=== PATIENT | male | born 1965 | race Caucasian/White ===

== ENCOUNTER 2020-04-12 14:39 | Outpatient (CLI) | payer MEDICARE, OTHER, SELFPAY ==
--- NOTE | 2020-04-12 14:45 | USCV_ITS ---
Anatoliy Adams Age: 54 Gender: M : 1965 Exam Date: 04/12/2020 14:52 Ordering Phys: Tri Harvey AIR CONDITIONING SPECIALIST Technologist: Luis M Nguyen Exam Location: [facility] [place] Indication: RT LEG PAIN AND AND SWELLING HISTORY: Lower extremity edema. PROCEDURES: Venous duplex imaging was performed in only the right lower extremity. The following venous structures were evaluated: common femoral vein, profunda vein, proximal portion of the greater saphenous vein, superficial femoral vein, and the popliteal vein. In addition, the posterior tibial and peroneal trunk were evaluated. On the left side, the common femoral, superficial femoral, profunda femoral, popliteal, posterior tibial, greater saphenous veins, and the peroneal trunk were identified and interrogated in the standard fashion. FINDINGS: Normal 2-D Doppler and augmentation and compressibility throughout the lower extremity venous structures. Additional imaging through the proximal calf veins also reveals no thrombus. Limited evaluation of the greater saphenous vein is patent with no thrombus. CONCLUSIONS No DVT right lower extremity. Dr. Gladys Ponce DO (Electronically Signed) Final Date: 12 April 2020 16:23 S
== END 2020-04-12 14:40 | disposition home or self-care (01) ==
LOC: RAD 14:44
PROVIDERS: PCP Family Medicine; Visit Provider Nurse Practitioner Family
DX: M79.661 Pain in right lower leg (principal); M79.89 Other specified soft tissue disorders
CPT/HCPCS: 93971

== ENCOUNTER 2021-03-17 06:07 | Emergency (ER) | payer MEDICARE, OTHER, SELFPAY ==
[2021-03-17 06:16] VITALS: BP 124/75; PULSE 67; RESP 20; TEMP 37; O2SAT 97; BMI 45.1
[2021-03-17 06:33] VITALS: PULSE 66; TEMP 36.9; O2SAT 96
--- NOTE | 2021-03-17 06:40 | ED_ITS ---
HPI - Male Genitourinary General: Chief complaint: Urogenital-Male Stated complaint: POSS UTI WITH BLOOD IN URINE Time Seen by Provider: 03/17/21 06:22 History of Present Illness: HPI Narrative: 55-year-old male presents emergency room with complaint of hematuria. Patient is on spironolactone. He states he has dysuria and urgency. He has noticed some dark in color to his urine. He has had some low back pain but no flank pain. MD Complaint: dysuria Onset (ago): day(s) Duration: intermittent Severity: mild Quality: aching Relieving factors: none Exacerbating factors: none Associated symptoms: Reports hematuria; Deny discharge, dysuria, fevers/chills, nausea, rash, swelling, urinary incontinence, urinary retention, mass or vomiting Review of Systems Const: Denies: fever(s), chills, body aches, change in appetite, fatigue or malaise ENMT: Denies: throat pain, ear or mastoid pain, nasal discharge or nasal congestion Card: Denies: chest pain, edema, dyspnea on exertion or orthopnea Resp: Denies: dyspnea, productive cough or non-productive cough GI: Denies: nausea or vomiting : Reports: hematuria; Denies: dysuria or urinary incontinence Skin/Breast: Denies: rash or pruritus Physical Exam Const: COMMON NORMALS: no acute distress GENERAL APPEARANCE: cooperative and comfortable ORIENTATION/CONSCIOUSNESS: Yes awake, Yes oriented to person, Yes oriented to place and Yes oriented to time HENMT: COMMON NORMALS: normocephalic, atraumatic and hearing grossly normal bilaterally HEAD & SCALP: normocephalic and atraumatic Neck/C-Spine: COMMON NORMALS: no JVD Resp: COMMON NORMALS: normal respiratory effort, No retractions, No use of accessory muscles and clear to auscultation bilaterally AUSCULTATION: clear to auscultation bilaterally Cardio: COMMON NORMALS: no JVD, regular rate, regular rhythm and No murmurs present (Cardio) RATE: regular rate RHYTHM: regular rhythm GI: COMMON NORMALS: Soft to palpation and No hepatosplenomegaly present AUSCULTATION: Yes normoactive bowel sounds PALPATION: Yes Soft to palpation, No Tenderness to palpation present (GI), No Guarding due to palpation present (GI) and Yes No hepatosplenomegaly present : COMMON NORMALS: Yes no CVA tenderness BLADDER/KIDNEY EXAM: Yes no CVA tenderness Back/Pelvis: COMMON NORMALS: no CVA tenderness Extremity: COMMON NORMALS: normal to inspection, capillary refill normal, no clubbing, cyanosis or edema, no calf tenderness and no pedal edema Neuro: SENSORIUM/ORIENTATION: Yes oriented to person, Yes oriented to place and Yes oriented to time Skin: COMMON NORMALS: no rashes or lesions noted GENERAL SKIN EXAM: no rashes or lesions noted Course Vital Signs: Vital signs: Vital Signs Temperature 98.5 F 03/17/21 06:33 Pulse Rate 62 03/17/21 08:45 Respiratory Rate 16 03/17/21 08:45 Blood Pressure 123/79 03/17/21 08:45 Pulse Oximetry 97 03/17/21 08:45 MDM - Male MDM Narrative: Medical decision making narrative: Labs and imaging reviewed. Start on Bactrim p.o. twice daily for 5 days while culture is pending. Follow- up with his primary care doctor if symptoms worsen or change return. Lab Data: Labs: Lab Results 03/17/21 03/17/21 03/17/21 06:45 07:12 07:12 WBC 3.7 10^3/uL L 10^ 3/uL (4.0-10.0) RBC 3.41 10^6/uL L 10 ^6/uL (4.1-5.3) Hgb 12.1 g/dL g/dL (11.7-16.6) Hct 34.8 % L % (42.0-52.0) MCV 102.1 fl H fl (80-94) MCH 35.5 pg H pg (28.0-34.0) MCHC 34.8 g/dL g/dL (30.0-36.0) RDW 14.8 % % (12.1-15.1) Plt Count 44 10^3/cmm L 10^ 3/cmm (130-400) MPV 10.8 fL H fL (7.4-10.4) Neut % (Auto) 52.3 % % Lymph % (Auto) 33.8 % % [place] % (Auto) 10.4 % % Eos % (Auto) 2.7 % % Baso % (Auto) 0.5 % % Neut # (Auto) 1.92 10^3/uL 10^3 /uL (1.8-7.7) Lymph # (Auto) 1.2 10^3/uL 10^3/ uL (0.8-4.8) [place] # (Auto) 0.4 10^3/uL 10^3/ uL (0.2-0.9) Eos # (Auto) 0.1 10^3/uL 10^3/ uL (0.0-0.8) Baso # (Auto) 0.0 10^3/uL 10^3/ uL (0.0-0.1) Nucleated RBC % (a uto) 0 % % Nucleated RBCs # 0.0 /100WBC /100W BC Sodium 133 mmol/L L mmol /L (136-145) Potassium 4.1 mmol/L mmol/L (3.5-5.1) Chloride 100 mmol/L mmol/L (98-107) Carbon Dioxide 25 mmol/L mmol/L (22-29) Anion Gap 12.1 (5-19) BUN 8 mg/dL mg/dL (6-20) Creatinine 0.9 mg/dL mg/dL (0.7-1.2) GFR Calculation 87.0 mL/min L mL/ min (90-130) Glucose 161 mg/dL H mg/dL (65-115) Calculated Osmolal ity 278 mOsm/kg L mOs m/kg (285-295) Calcium 8.1 mg/dL L mg/dL (8.5-10.5) Urine Color [place] (Yellow) Urine Appearance Clear (CLEAR) Urine pH 7 (5-7) Ur Specific Gravit y 1.010 (1.005-1.030) Urine Protein Neg (Negative) Urine Glucose (UA) Norm (Normal) Urine Ketones 1+ H (Negative) Urine Blood Neg (Negative) Urine Nitrate Negative (Negative) Urine Bilirubin 2+ H (Negative) Urine Urobilinogen 4+ mg/dL H mg/dL (Negative) Ur Leukocyte [place] Trace H (Negative) Urine RBC None /hpf /hpf (0-2) Urine WBC 5-10 /hpf H /hpf (0-5) Ur Squamous Epith Cells 5-10 /hpf H /hpf (0-5) Amorphous Sediment Not Reportable Urine Bacteria 1+ /hpf H /hpf (NONE) Urine Mucus Trace /hpf /hpf Discharge Plan Discharge Patient Disposition: Home Clinical Impression: Urinary tract infection Condition: Stable Prescriptions: New Bactrim DS 800-160 mg tablet 1 tab PO BID 5 Days Qty: 10 RF: 0 No Action spironolactone 25 mg tablet 25 mg PO DAILY Qty: 30 RF: 3 potassium chloride 20 mEq tablet extended release 20 meq PO DAILY Qty: 30 RF: 1 Discharge Orders: Discharge ED (Routine); Ordered 03/17/21 Ordered By: Rome Bermudez Referrals: Pedrito Aaron MD [Primary Care Provider] - Discharge Diet: Usual diet Discharge Activity: Increase activity as tolerated Patient Instructions: Opioid Safety Coding Level of Care Code ED Import/Export Freight Forwarder for Aayush Lemus
[2021-03-17 07:22] VITALS: BP 98/68; PULSE 66; RESP 16; O2SAT 97
--- NOTE | 2021-03-17 07:24 | PC.NURSE ---
Report received from Nina Regalado RN. Pt currently denies N/V/D and abdominal pain. abdomen soft and non-tender.
[2021-03-17 07:30] LABS: Basophils % 0.5 %; Eosinophils # 0.1 10^3/uL (0.0-0.8); Eosinophils % 2.7 %; Hematocrit 34.8 % (42.0-52.0); Hemoglobin 12.1 g/dL (11.7-16.6); Lymphocytes # 1.2 10^3/uL (0.8-4.8); Lymphocytes % 33.8 %; Mean Corpuscular HGB Conc 34.8 g/dL (30.0-36.0); Mean Corpuscular Hemoglobin 35.5 pg (28.0-34.0); Mean Corpuscular Volume 102.1 fl (80-94); Mean Platelet Volume 10.8 fL (7.4-10.4); Monocytes # 0.4 10^3/uL (0.2-0.9); Monocytes % 10.4 %; Neutrophils # 1.92 10^3/uL (1.8-7.7); Neutrophils % 52.3 %; Nucleated Red Blood Cells % 0 %; Platelet Count 44 10^3/cmm (130-400); Red Blood Count 3.41 10^6/uL (4.1-5.3); Red Cell Distribution Width 14.8 % (12.1-15.1); White Blood Count 3.7 10^3/uL (4.0-10.0)
[2021-03-17 07:47] LABS: Slide Review Slide Review Perform
[2021-03-17 07:49] LABS: Glucose Urine UA Norm (Normal); Ketones Urine 1+ (Negative); Protein Urine Neg (Negative); Urine Appearance Clear (CLEAR); Urine Color Orange (Yellow); pH Urine 7 (5-7)
[2021-03-17 07:49] LABS: Anion Gap 12.1 (5-19); Blood Urea Nitrogen 8 mg/dL (6-20); Calcium 8.1 mg/dL (8.5-10.5); Carbon Dioxide 25 mmol/L (22-29); Chloride 100 mmol/L (98-107); Glucose 161 mg/dL (65-115); Osmolality Calculated 278 mOsm/kg (285-295); Potassium 4.1 mmol/L (3.5-5.1); Sodium 133 mmol/L (136-145)
[2021-03-17 07:50] LABS: Add Urine Microscopic? YES; Bilirubin Urine 2+ (Negative); Blood Urine Neg (Negative); Leukocyte Esterase Urine Trace (Negative); Nitrate Urine Negative (Negative); Urobilinogen Urine 4+ mg/dL (Negative)
[2021-03-17 07:52] LABS: Add Urine Culture? No; Bacteria Urine 1+ /hpf; Mucus Urine TRACE /hpf
[2021-03-17 08:45] VITALS: BP 123/79; PULSE 62; RESP 16; O2SAT 97
== END 2021-03-17 08:47 | disposition home or self-care (01) ==
PROVIDERS: Emergency Provider Family Medicine; PCP Family Medicine
DX: N39.0 Urinary tract infection, site not specified (principal)
CPT/HCPCS: 80048; 81001; 85025; 99283

== ENCOUNTER 2021-09-10 13:42 | Emergency (ER) | payer MEDICARE, OTHER, SELFPAY ==
[2021-09-10] VITALS (11 sets, daily range): BP systolic 76–123; BP diastolic 40–74; PULSE 96–119; RESP 29–37; TEMP 36.6; O2SAT 88–99; BMI 41.3
--- NOTE | 2021-09-10 14:06 | ECG_ITS ---
[facility] Test Date: 2021-09-10 Pat Name: Anatoliy Adams Department: Room: Gender: Male Barkeeper: : 1965 Requested By: Qeuntin Barragan Order Number: [id number] Daylin MD: Marly Painter M.D. Measurements Intervals [place] Rate: 123 P: 3 MI: 102 QRS: -42 QRSD: 75 T: -7 QT: 338 QTc: 485 Interpretive Statements SINUS TACHYCARDIA WITH SHORT MI INTERVAL LOW QRS VOLTAGE IN PRECORDIAL LEADS [QRS DEFLECTION < 1.0 mV IN CHEST LEADS] INFERIOR MYOCARDIAL INFARCTION , OF INDETERMINATE AGE [40+ ms Q WAVE AND/OR ST/T ABNORMALITY IN II/aVF] ANTEROLATERAL MYOCARDIAL INFARCTION , PROBABLY RECENT Compared to ECG 06/29/2017 22:00:10 Short MI interval now present Low QRS voltage now present Myocardial infarct finding still present Electronically Signed On 09-11-2021 7:56:07 CDT by Marly Painter M.D. [id number]
--- NOTE | 2021-09-10 14:12 | ED_ITS ---
HPI - Abdominal Pain General: Chief Complaint: Abdominal Pain Stated Complaint: ABDOMINAL PAIN/ DISTENTION/ JAUNDICED Time Seen by Provider: 09/10/21 13:54 History of Present Illness: 55-year-old male presents emerged department chief complaint of abdominal pain back pain chest pain I hurt all over patient has a known history of nonalcoholic liver disease reports that he has had frequent nausea vomiting and diarrhea is been ongoing last 3 to 4 days reports he is take himself off his medications due to this the patient reports lysed malaise and fatigue he does not recall any recent fevers or chills he is not aware when his last appointment with his liver specialist was. Patient reports no recent infections no illnesses reporting no other associated symptoms. Associated Symptoms: Reports diarrhea, nausea and vomiting; Denies chills and fever(s) Review of Systems General: Reports: 10 or more systems reviewed and unremarkable except in HPI and below Const: Denies: fever(s), chills, fatigue or malaise Eyes: Denies: change in vision or blurry vision Card: Reports: chest pain; Denies: palpitations Resp: Denies: dyspnea or productive cough GI: Reports: abdominal pain, nausea, vomiting and diarrhea : Denies: flank pain Musc: Reports: extremity pain; Denies: extremity swelling Skin/Breast: Denies: rash or pruritus Neuro: Denies: headache(s) Psych: Denies: anxiety or depression [place]/Lymph: Denies: easy bleeding All/Imm: Denies: urticaria, throat swelling or facial swelling Physical Exam Const: COMMON NORMALS: no acute distress (Patient is acutely morning reporting pain all over unable to specify exact ), patient oriented x3 and healthy appearing HENMT: COMMON NORMALS: normocephalic and atraumatic HEAD & SCALP: normocephalic and atraumatic Eye: COMMON NORMALS: Equal, round and reactive pupils present and EOMs intact bilaterally PUPIL: Yes Equal, round and reactive pupils present Neck/C-Spine: COMMON NORMALS: full ROM, supple and no JVD Lymph: LYMPHATIC: no lymphadenopathy noted Chest: COMMONS NORMALS: normal inspection of the chest and normal palpation of entire chest wall Resp: COMMON NORMALS: normal respiratory effort (Equal breath sounds appreciated bilaterally no obvious wheezing crackles ra), No retractions and clear to auscultation bilaterally EFFORT & INSPECTION: Yes able to speak in complete sentences and Yes symmetric chest movement AUSCULTATION: clear to auscultation bilaterally Cardio: COMMON NORMALS: no JVD, regular rate and regular rhythm RATE: regul ar rate RHYTHM: regular rhythm GI: COMMON NORMALS: Normal to inspection, nondistended, normoactive bowel sounds present and Soft to palpation INSPECTION: Yes normal to inspection PALPATION: Yes Soft to palpation OTHER: Moderate distention noted no guarding or rebound appreciated : COMMON NORMALS: Yes no CVA tenderness BLADDER/KIDNEY EXAM: Yes no CVA tenderness Back/Pelvis: COMMON NORMALS: no CVA tenderness Extremity: COMMON NORMALS: normal to inspection and full ROM Neuro: COMMON NORMALS: patient oriented x3, CN's II-XII intact bilaterally, moves all extremities and no focal motor deficits Psych: COMMON NORMALS: mental status grossly normal, Normal thought process present, cooperative and normal affect THOUGHT PROCESS: Normal thought process present Skin: COMMON NORMALS: no rashes or lesions noted (Obvious scleral icterus a ppreciated as well as jaundice) GENERAL SKIN EXAM: no rashes or lesions noted (Obvious scleral icterus appreciated as well as jaundice) Course Vital Signs: Vital signs: Vital Signs Temperature 97.8 F 09/10/21 13:47 Pulse Rate 103 H 09/10/21 20:30 Respiratory Rate 29 H 09/10/21 20:30 Blood Pressure 76/55 09/10/21 20:30 Pulse Oximetry 98 09/10/21 20:30 MDM - Abdominal Pain Medical Decision Making Due to the patient's symptom condition Iv will be established labwork and imaging will be obtained we will continue to follow. Notified by nursing staff lab had multiple failures regards to obtaining lab work. Still continue to wait patient was found to be somewhat dehydrated with a creatinine of 3.0 with a BUN of 45 will be obtaining a repeat CMP due to a low CO2 which could be indicative of a lactic acidosis. Will be provide the patient a dose of lactulose due to his high ammonia level will continue to follow with anticipation need for admission. CT imaging without contrast revealed concerns of pneumatosis intestinalis of the transverse colon underlying concerns of ischemic colitis or are prominent. Still currently waiting on a lactic acid level to be obtained. We will continue to follow Discussed the patient's findings with Dr. Mcnamara on-call surgeon who recommends transfer to high-level care with GI services available. Patient was started on Zosyn and vancomycin IV fluids were provided for presumed underlying sepsis. Lactic acid is still currently pending. Lactic acid was extremely elevated 24 spoke to [facility] there currently is no bed availability which patient is on a bed hold status discussed the patient's case with Zoe Harris discussed with the patient with Dr. Molina in the emergency department that has granted acceptance patient be going by air transportation. Patient is currently septic due to pneumatosis intestinalis currently in guarded condition. Lab Data : 09/10/21 14:20 09/10/21 19:26 Labs/Radiology: Radiology Impressions Abdomen/Pelvis CT 09/10/21 17:54 IMPRESSION: 1. Diffuse colonic wall thickening with suspected pneumatosis intestinalis of the transverse colon along with several punctate pockets of extraluminal air about the transverse colon suggestive of air in venous system, combination of findings are concerning for ischemic colitis. Extraluminal air secondary to bowel perforation is felt less likely. 2. Bibasilar atelectasis versus minimal infiltrate. 3. Right lower lobe 8 mm pulmonary nodule, dedicated nonemergent chest CT advised for further evaluation. 4. Coronary artery atherosclerotic calcifications. 5. Spleen enlarged to 15 cm. 6. Small amount of ascites in the abdomen. 7. Cholecystectomy. 8. Small umbilical hernia containing omental fat without bowel or inflammation. 9. Diverticulosis without diverticulitis. Laboratory Results WBC 12.6 10^3/uL (4.0-10.0) H 09/10/21 14:20 RBC 3.39 10^6/uL (4.1-5.3) L 09/10/21 14:20 Hgb 12.3 g/dL (11.7-16.6) 09/10/21 14:20 Hct 39.3 % (42.0-52.0) L 09/10/21 14:20 MCV 115.9 fl (80-94) H 09/10/21 14:20 MCH 36.3 pg (28.0-34.0) H 09/10/21 14:20 MCHC 31.3 g/dL (30.0-36.0) 09/10/21 14:20 RDW 16.5 % (12.1-15.1) H 09/10/21 14:20 Plt Count 91 10^3/cmm (130-400) L 09/10/21 14:20 MPV 12.3 fL (7.4-10.4) H 09/10/21 14:20 Lymph % (Auto) Not Reportable 09/10/21 14:20 [place] % (Auto) Not Reportable 09/10/21 14:20 Lymph # (Auto) Not Reportable 09/10/21 14:20 [place] # (Auto) Not Reportable 09/10/21 14:20 Total Counted 100 (0-100) 09/10/21 14:20 Atypical Lymphs % 1.0 % (0-5) 09/10/21 14:20 Absolute Neutrophils 9.2 10^3/cmm (1.4-6.5) H 09/10/21 14:20 Segmented Neutrophils 31 % 09/10/21 14:20 Abs Segm Neuts (Man) 3.9 10/cmm (1.6-7.1) 09/10/21 14:20 Band Neutrophils 42.0 % 09/10/21 14: Abs Band Neuts (Man) 5.3 10^3/cmm (0.0-1.2) H 09/10/21 14:20 Absolute Lymphocytes 1.6 10^3/cmm (1.2-3.4) 09/10/21 14:20 Lymphocytes (Manual) 12 % 09/10/21 14:20 Monocytes (Manual) 7.0 % 09/10/21 14:20 Absolute Monocytes 0.9 10^3/cmm (0.1-0.6) H 09/10/21 14:20 Eosinophils (Manual) 1 % 09/10/21 14:20 Absolute Eosinophils 0.1 10^3/cmm (0.0-0.7) 09/10/21 14:20 Basophils (Manual) Not Reportable 09/10/21 14:20 Metamyelocytes 6.0 % 09/10/21 14:20 Platelet Estimate Decreased (Normal) 09/10/21 14:20 Polychromasia 1+ H 09/10/21 14:20 Anisocytosis 1+ H 09/10/21 14:20 Macrocytosis 2+ H 09/10/21 14:20 Lizz Cells 1+ H 09/10/21 14:20 PT 38.50 SECONDS (12.1-14.9) H 09/10/21 19:26 INR 3.91 (0.8-1.2) H 09/10/21 19:26 APTT 51.8 SECONDS (23.9-36.7) H 09/10/21 19:26 Sodium 131 mmol/L (136-145) L 09/10/21 19:26 Potassium 5.2 mmol/L (3.5-5.1) H 09/10/21 19:26 Chloride 91 mmol/L (98-107) L 09/10/21 19:26 Carbon Dioxide 5 mmol/L (22-29) L* 09/10/21 19:26 Anion Gap 40.2 (5-19) H 09/10/21 19:26 BUN 45 mg/dL (6-20) H 09/10/21 19:26 Creatinine 3.5 mg/dL (0.7-1.2) H 09/10/21 19:26 GFR Calculation 18.1 mL/min (90-130) L 09/10/21 19:26 Glucose 202 mg/dL (65-115) H 09/10/21 19:26 Calculated Osmolality 289 mOsm/kg (285-295) 09/10/21 19:26 Lactate 24.2 mmol/L (0.5-2.2) H* 09/10/21 19:26 Calcium 8.4 mg/dL (8.5-10.5) L 09/10/21 19:26 Total Bilirubin 10.5 mg/dL (0.15-1.2) H* 09/10/21 19:26 AST 34 U/L (0-40) 09/10/21 19:26 ALT 28 U/L (0-41) 09/10/21 19:26 Alkaline Phosphatase 72 IU/L (40-130) 09/10/21 19:26 Ammonia 158 umol/L (16-60) H 09/10/21 14:20 C-Reactive Protein 81.2 mg/L (0.0-4.9) H 09/10/21 16:55 NT-Pro-B Natriuret Pep 1301 pg/mL (0-125) H 09/10/21 16:55 Total Protein 6.8 g/dL (6.6-8.7) 09/10/21 19:26 Albumin 2.6 g/dL (3.5-5.2) L 09/10/21 19:26 Globulin 4.2 g/dL (1.3-4.6) 09/10/21 19:26 Lipase Cancelled 09/10/21 14:20 Discharge Plan Discharge Patient Disposition: Transfer to ED Clinical Impression: Sepsis, Pneumatosis intestinalis, Liver cirrhosis secondary to GONZALEZ, Acidosis, lactic, Acute renal failure Condition: Stable Prescriptions: No Action aspirin 81 mg tablet,delayed release (DR/EC) 81 mg PO QAM 0RF furosemide 40 mg tablet 40 mg PO QAM 0RF metoprolol succinate 50 mg tablet extended release 24 hr 50 mg PO QAM 0RF omeprazole 20 mg capsule,delayed release(DR/EC) 20 mg PO QAM 0RF spironolactone 25 mg tablet 25 mg PO QAM 0RF potassium chloride 20 mEq tablet extended release 20 meq PO QAM 0RF tramadol 50 mg tablet 50 mg PO TID PRN (Reason: Pain) 0RF isosorbide mononitrate 120 mg tablet extended release 24 hr 120 mg PO QAM 0RF ramipril 2.5 mg capsule 2.5 mg PO QAM 0RF lactulose 10 gram/15 mL solution 30 ml PO BID 0RF Referrals: Pedrito Aaron MD [Primary Care Provider] - Coding Level of Care Code ED Scenic [employer] Supervisor for Chg Fwd Exam Comprehensive
[2021-09-10] MEDS: sodium chloride 0.9% 1,000 ML 999 ML IV ×2 (14:36→18:49)
[2021-09-10 14:54] LABS: Hematocrit 39.3 % (42.0-52.0); Hemoglobin 12.3 g/dL (11.7-16.6); Mean Corpuscular HGB Conc 31.3 g/dL (30.0-36.0); Mean Corpuscular Hemoglobin 36.3 pg (28.0-34.0); Mean Corpuscular Volume 115.9 fl (80-94); Mean Platelet Volume 12.3 fL (7.4-10.4); Platelet Count 91 10^3/cmm (130-400); Positive M 1; Red Blood Count 3.39 10^6/uL (4.1-5.3); Red Cell Distribution Width 16.5 % (12.1-15.1); White Blood Count 12.6 10^3/uL (4.0-10.0)
[2021-09-10 15:33] LABS: Ammonia 158 umol/L (16-60)
[2021-09-10 16:32] LABS: Slide Review Slide Review Perform
[2021-09-10 16:33] LABS: Absolute Eosinophils 0.1 10^3/cmm (0.0-0.7); Absolute Neutrophil 9.2 10^3/cmm (1.4-6.5); Absolute Segmented Neutrophil 3.9 10/cmm (1.6-7.1); Anisocytosis 1+; Band Neutrophils Absolute 5.3 10^3/cmm (0.0-1.2); Eosinophils 1 %; Lymphocytes 12 %; Lymphocytes Absolute 1.6 10^3/cmm (1.2-3.4); Macrocytosis 2+; Monocytes Absolute 0.9 10^3/cmm (0.1-0.6); Platelet Estimate Decreased (Normal); Polychromasia 1+; Segmented Neutrophils 31 %; Total Cells Counted 100 (0-100)
[2021-09-10 16:34] LABS: Burr Cells 1+
[2021-09-10] MEDS: lactulose oral liq 20 gm/30 mL UDC 30 GM PO (17:33)
[2021-09-10 17:40] LABS: Alanine Aminotransferase 27 U/L (0-41); Albumin Level 2.5 g/dL (3.5-5.2); Alkaline Phosphatase 66 IU/L (40-130); Aspartate Amino Transferase 28 U/L (0-40); Blood Urea Nitrogen 45 mg/dL (6-20); C Reactive Protein 81.2 mg/L (0.0-4.9); Chloride 91 mmol/L (98-107); Globulin 4.1 g/dL (1.3-4.6); Glomerular Filtration Rate 21.7 mL/min (90-130); Glucose 228 mg/dL (65-115); NT Pro B Type Natriuretic Pept 1301 pg/mL (0-125); Osmolality Calculated 291 mOsm/kg (285-295); Sodium 131 mmol/L (136-145); Total Protein 6.6 g/dL (6.6-8.7)
[2021-09-10 17:47] LABS: Anion Gap 39.8 (5-19); Potassium 5.8 mmol/L (3.5-5.1)
[2021-09-10 17:48] LABS: Carbon Dioxide 6 mmol/L (22-29); Total Bilirubin 11.5 mg/dL (0.15-1.2)
--- NOTE | 2021-09-10 17:54 | CTR_ITS ---
PROCEDURE INFORMATION: Exam: CT Abdomen And Pelvis Without Contrast Exam date and time: 09/10/2021 6:17 PM Age: 55 years old Clinical indication: Abnormal findings; Abnormal lab test; Abnormal kidney function lab tests and abnormal function test of other organs/systems; Prior surgery; Surgery date: 6+ months; Additional info: Abdominal distention with pain, liver and kidney failure TECHNIQUE: Imaging protocol: Computed tomography of the abdomen and pelvis without contrast. Radiation optimization: All CT scans at this facility use at least one of these dose optimization techniques: automated exposure control; mA and/or kV adjustment per patient size (includes targeted exams where dose is matched to clinical indication); or iterative reconstruction. COMPARISON: CT abdomen pelvis wo con [id number] 06/29/2017 4:17 PM RADIATION DOSE METRICS: Total DLP (mGy-cm): 1875.21 FINDINGS: Lungs: Bibasilar atelectasis versus minimal infiltrate. Right lower lobe 8 mm pulmonary nodule, dedicated nonemergent chest CT advised for further evaluation. Heart: Coronary artery atherosclerotic calcifications. Liver: Normal. No mass. Gallbladder and bile ducts: Cholecystectomy. Pancreas: Normal. No ductal dilation. Spleen: Spleen enlarged to 15 cm. Adrenal glands: Normal. No mass. Kidneys and ureters: Normal. No hydronephrosis. Stomach and bowel: Diffuse colonic wall thickening with suspected pneumatosis intestinalis of the transverse colon along with several punctate pockets of extraluminal air about the transverse colon suggestive of air in venous system, combination of findings are concerning for ischemic colitis. Extraluminal air secondary to bowel perforation is felt less likely. Diverticulosis without diverticulitis. Appendix: No evidence of appendicitis. Intraperitoneal space: Small amount of ascites in the abdomen. Vasculature: See Stomach and bowel finding. Lymph nodes: Unremarkable. No enlarged lymph nodes. Urinary bladder: Unremarkable as visualized. Reproductive: Unremarkable as visualized. Bones/joints: Unremarkable. No acute fracture. Soft tissues: Small umbilical hernia containing omental fat without bowel or inflammation. CT/CT abdomen pelvis wo con [id number] IMPRESSION: 1. Diffuse colonic wall thickening with suspected pneumatosis intestinalis of the transverse colon along with several punctate pockets of extraluminal air about the transverse colon suggestive of air in venous system, combination of findings are concerning for ischemic colitis. Extraluminal air secondary to bowel perforation is felt less likely. 2. Bibasilar atelectasis versus minimal infiltrate. 3. Right lower lobe 8 mm pulmonary nodule, dedicated nonemergent chest CT advised for further evaluation. 4. Coronary artery atherosclerotic calcifications. 5. Spleen enlarged to 15 cm. 6. Small amount of ascites in the abdomen. 7. Cholecystectomy. 8. Small umbilical hernia containing omental fat without bowel or inflammation. 9. Diverticulosis without diverticulitis.
[2021-09-10] MEDS: piperacillin-tazobactam 4.5 GM in sodium chloride 0.9% (plus) 50 ML IV (19:42)
[2021-09-10] MEDS: fentaNYL 50 mcg/mL INJ 2mL IVP ×2 (19:52→21:08)
[2021-09-10 19:58] LABS: INR 3.91 (0.8-1.2)
[2021-09-10 19:59] LABS: Partial Thromboplastin Time 51.8 SECONDS (23.9-36.7)
[2021-09-10 20:02] LABS: Alanine Aminotransferase 28 U/L (0-41); Albumin Level 2.6 g/dL (3.5-5.2); Alkaline Phosphatase 72 IU/L (40-130); Anion Gap 40.2 (5-19); Aspartate Amino Transferase 34 U/L (0-40); Blood Urea Nitrogen 45 mg/dL (6-20); Calcium 8.4 mg/dL (8.5-10.5); Chloride 91 mmol/L (98-107); Globulin 4.2 g/dL (1.3-4.6); Glomerular Filtration Rate 18.1 mL/min (90-130); Glucose 202 mg/dL (65-115); Osmolality Calculated 289 mOsm/kg (285-295); Potassium 5.2 mmol/L (3.5-5.1); Sodium 131 mmol/L (136-145); Total Protein 6.8 g/dL (6.6-8.7)
[2021-09-10 20:19] LABS: Creatinine Clr Calc Pharmacy 30.7042
[2021-09-10 20:22] LABS: Carbon Dioxide 5 mmol/L (22-29); Total Bilirubin 10.5 mg/dL (0.15-1.2)
[2021-09-10] MEDS: albumin 12.5 GM/50 ML VIAL IV (20:22)
[2021-09-10 20:24] LABS: Lactate (Lactic Acid level) 24.2 mmol/L (0.5-2.2)
[2021-09-10] MEDS: phytonadione (ADULT) 10 mg/mL Ampule 1 mL PO (21:06)
[2021-09-10 22:20] LABS: Adenovirus Not Detected (NOT DETECT); Chlamydia Pneumoniae Not Detected (NOT DETECT); Coronavirus 229E,HKU1,NL63,OC4 Not Detected (NOT DETECT); Human Metapneumovirus Not Detected (NOT DETECT); Human Rhinovirus/Enterovirus Not Detected (NOT DETECT); Influenza A Not Detected (NOT DETECT); Influenza A H1 Not Detected (NOT DETECT); Influenza A H1-2009 Not Detected (NOT DETECT); Influenza A H3 Not Detected (NOT DETECT); Influenza B Not Detected (NOT DETECT); Mycoplasma Pneumoniae Not Detected (NOT DETECT); Parainfluenza Virus Type 1 Not Detected (NOT DETECT); Parainfluenza Virus Type 2 Not Detected (NOT DETECT); Parainfluenza Virus Type 3 Not Detected (NOT DETECT); Parainfluenza Virus Type 4 Not Detected (NOT DETECT); Respiratory Syncytial Virus A Not Detected (NOT DETECT); Respiratory Syncytial Virus B Not Detected (NOT DETECT); SARS-COV-2 Not Detected (NOT DETECT)
== END 2021-09-10 21:32 ==
PROVIDERS: Emergency Provider Emergency Medicine; PCP Family Medicine
DX: A41.9 Sepsis, unspecified organism (principal); K63.89 Other specified diseases of intestine; K75.81 Nonalcoholic steatohepatitis (NASH); K74.69 Other cirrhosis of liver; E87.2 Acidosis; N17.9 Acute kidney failure, unspecified; Z79.82 Long term (current) use of aspirin
CPT/HCPCS: 74176; 80053; 82140; 83605; 83880; 85007; 85025; 85610; 85730; 86140; 87635; 93005; 96365; 96367; 96375; 96376; 99285; J2543; J3010; J3370; J3430; J7030; J7050; P9047